=== PATIENT | female | born 1995 | race African-American/Black ===

== ENCOUNTER 2017-04-10 22:53 | Emergency (ER) | payer SELFPAY ==
[~2017-04-10] VITALS: Ht 170.2 cm; Wt 75.0 kg
[2017-04-10 23:12] VITALS: BP 115/80
[2017-04-11] MEDS ORDERED: ALBUTEROL (0.083%) 2.5MG/3ML NEB HHN ONE (00:45)
[2017-04-11] MEDS ORDERED: IBUPROFEN 600MG TABLET PO ONE (01:00)
== END 2017-04-11 02:14 | disposition home or self-care (01) ==
LOC: ER 22:54
DX: J06.9 Acute upper respiratory infection, unspecified (principal); F17.200 Nicotine dependence, unspecified, uncomplicated; R06.2 Wheezing
CPT/HCPCS: 71010; 81025; 94640; 99283; J7611